=== PATIENT | male | born 1980 | race Caucasian/White ===

== ENCOUNTER 2018-03-27 19:11 | Emergency (ER) | payer SELFPAY ==
[~2018-03-27] VITALS: Ht 167.6 cm; Wt 100.0 kg
[2018-03-27 19:14] VITALS: BP 99/77
== END 2018-03-27 19:30 | disposition left against medical advice (07) ==
LOC: ER 19:11
DX: R41.82 Altered mental status, unspecified (principal); Z53.21 Procedure and treatment not carried out due to patient leaving prior to being seen by health care provider